=== PATIENT | male | born 1985 | race Caucasian/White ===

== ENCOUNTER 2018-11-25 17:35 | Inpatient (IN) | payer OTHER ==
[2018-11-25] MEDS ORDERED: MELATONIN 5 MG TABLETS PO PRN (22:00)
[2018-11-25 22:21] VITALS: BMI 27.5
--- NOTE | 2018-11-25 22:49 | HP ---
COWS - Scale Resting Pulse: 0= NV 80 or Below Sweatin= No chills or Flushing Restless Observation: 0= Sits Still Pupil Size: 0= Normal to Room Light Bone or Joint Aches: 0= None Runny Nose/ Eye Tearin= None GI Upset > 30mins: 0= None Tremor Observation: 0= None Yawning Observation: 0= None Anxiety or Irritability: 0= None Goose Flesh Skin: 0=Smooth Skin COWS Score: 0 CIWA Score - Admission Criteria [facility]ASAS Guidelines: Admission for Medically Managed Detox: Requires at least one of the followin. CIWA greater than 12 2. Seizures within the past 24 hours 3. Delirium tremens within the past 24 hours 4. Hallucinations within the past 24 hours 5. Acute intervention needed for co occurring medical disorder 6. Acute intervention needed for co occurring psychiatric disorder 7. Severe withdrawal that cannot be handled at a lower level of care (continued vomiting, continued diarrhea, abnormal vital signs) requiring intravenous medication and/or fluids 8. Admission ROS [facility] Chief Complaint: seeking rehab services for intermittent opiate use Allergies/Adverse Reactions: Allergies Allergy/AdvReac Type Severity Reaction Status Date / Time No Known Allergies Allergy Verified 11/25/18 22:09 History of Present Illness: 33 y.o. male with opioid dependence here for rehab. this is client first admission here. He reports this as his first time seeking substance abuse txment. client reports using heroin 2x week and he also abuses oxy's. Reports last use 3 weeks ago and last used herion 1 day ago. client presnetly denies any withdrawal sx's. States he can go weeks w/o using any opiates and not have withdraWAL SX'S. reports he refrains from opiates few months at a time without withdrawal sx's. Denies si/hi/avh/drug overdose or seizure d/o. domiciled, unemployed, denies legals. Exam Limitations: No Limitations - Ebola screening Have you traveled outside of the country in the last 21 days: No (N) Have you had contact with anyone from an Ebola affected area: No Have you been sick,other than usual withdrawal symptoms: No Do you have a fever: No - Review of Systems Constitutional: No Symptoms Reported EENT: reports: No Symptoms Reported Respiratory: reports: No Symptoms reported Cardiac: reports: No Symptoms Reported GI: reports: No Symptoms Reported : reports: No Symptoms Reported Integumentary: reports: No Symptoms Reported Neuro: reports: No Symptoms reported Endocrine: reports: No Symptoms Reported Hematology: reports: No Symptoms Reported Psychiatric: reports: Orientated x3, Depressed (hx/o on zoloft) Other Systems: Reviewed and Negative Patient History - Patient Medical History Hx Anemia: No Hx Asthma: No Hx Chronic Obstructive Pulmonary Disease (COPD): No Hx Cancer: No Hx Cardiac Disorders: No Hx Congestive Heart Failure: No Hx Hypertension: No Hx Hypercholesterolemia: No Hx Pacemaker: No HX Cerebrovascular Accident: No Hx Seizures: No Hx Dementia: No Hx Diabetes: No Hx Gastrointestinal Disorders: No Hx Liver Disease: No Hx Genitourinary Disorders: No Hx Sexually Transmitted Disorders: No Hx Renal Disease (ESRD): No Hx Thyroid Disease: No Hx Human Immunodeficiency Virus (HIV): No Hx Hepatitis C: No Hx Depression: No Hx Suicide Attempt: No Hx Bipolar Disorder: No Hx Schizophrenia: No Other Medical History: heb b- no txment - Patient Surgical History Past Surgical History: No - PPD History Previous Implant?: Yes Documented Results: Negative w/o proof Implanted On Prior [facility] Admission?: No PPD to be Administered?: No - Smoking Cessation Smoking history: Current some day smoker Have you smoked in the past 12 months: Yes Aproximately how many cigarettes per day: 5 Cigars Per Day: 0 Hx Chewing Tobacco Use: No Initiated information on smoking cessation: Yes 'Breaking Loose' booklet given: 11/25/18 - Substance & Tx. History Hx Alcohol Use: No Hx Substance Use: Yes Substance Use Type: Heroin, Opiates (oxy) Hx Substance Use Treatment: No - Substances abused Heroin Substance route: Inhalation Frequency: 1-2 times per week (2x a week) Amount used: 2 bags Age of first use: 32 Date of last use: 11/24/18 Oxycontin Substance route: Inhalation Frequency: 1-2 times per week Amount used: 1 30mg pill Age of first use: 30 Date of last use: 10/27/18 Marijuana/Hashish Substance route: Smoking Frequency: 1-2 times per week Amount used: 1 joint Age of first use: 18 Date of last use: 11/23/18 Family Disease History - Family Disease History Family Disease History: Other: Father (recovering heroin addict) Admission Physical Exam [facility] - Vital Signs Vital Signs: Vital Signs - 24 hr 11/25/18 22:15 Temperature 97.3 F L Pulse Rate 61 Respiratory 16 Rate Blood Pressure 116/78 - Physical General Appearance: Yes: No Apparent Distress HEENTM: Yes: EOMI, Normocephalic, Normal Voice, HÉCTOR, Pharynx Normal Respiratory: Yes: Chest Non-Tender, Lungs Clear, Normal Breath Sounds, No Respiratory Distress, No Accessory Muscle Use Neck: Yes: No masses,lesions,Nodules, Supple, Trachea in good position Breast: Yes: Breast Exam Deferred Cardiology: Yes: Regular Rhythm, Regular Rate, S1, S2 Abdominal: Yes: Normal Bowel Sounds, Non Tender, Soft Genitourinary: Yes: Within Normal Limits Back: Yes: Normal Inspection Musculoskeletal: Yes: full range of Motion, Gait Steady Extremities: Yes: Normal Range of Motion Neurological: Yes: Fully Oriented, Alert, Motor Strength 5/5 Integumentary: Yes: Dry, Warm Lymphatic: Yes: Within Normal Limits - Diagnostic (1) Uncomplicated opioid abuse Current Visit: Yes Status: Acute (2) Cannabis abuse, uncomplicated Current Visit: Yes Status: Acute (3) Nicotine dependence Current Visit: Yes Status: Acute Qualifiers: Nicotine product type: cigarettes Substance use status: uncomplicated Qualified Code(s): F17.210 - Nicotine dependence, cigarettes, uncomplicated (4) Depression Current Visit: Yes Status: Chronic Cleared for Admission [facility] - Detox or Rehab Detox Regimen/Protocol: Not Applicable Claeared for Rehab Admission: Yes Inpatient Rehab Admission - Rehab Decision to Admit Inpatient rehab admission?: Yes - Initial Determination Are CD services needed?: Yes Free of communicable disease: Yes Not in need of hospitalization: Yes - Rehab Admission Criteria Previous failed treatment: No Poor recovery environment: Yes Comorbidities: Yes Lacks judgement: Yes Patient is meeting Inpatient Rehab admission criteria:: Yes
[2018-11-25] MEDS ORDERED: LOPERAMIDE HCL 2 MG CAPSULE PO PRN (22:56)
[2018-11-25] MEDS ORDERED: MAG HYDROX/AL HYDROX/SIMETH 30 ML UNIT-DOSE CUP PO PRN (22:56)
[2018-11-25] MEDS ORDERED: IBUPROFEN 400 MG TABLET (FP) PO PRN (22:56)
[2018-11-25] MEDS ORDERED: MAGNESIUM HYDROX 2400MG/30ML ORAL SUSPENSION 30 ML CUP PO PRN (22:56)
[2018-11-25] MEDS ORDERED: ACETAMINOPHEN 325 MG TABLET (FP) PO PRN (22:56)
[2018-11-25] MEDS ORDERED: NICOTINE POLACRILEX 2 MG GUM BC PRN (22:56)
[2018-11-25] MEDS ORDERED: MENTHOL/PHENOL 1 EACH UD MM PRN (22:56)
[2018-11-25] MEDS ORDERED: hydrOXYzine PAMOATE 50 MG CAPSULE (FP) PO PRN (22:56)
[2018-11-25] MEDS ORDERED: guaiFENesin 200 MG/10 ML 10 ML UNIT-DOSE CUPS PO PRN (22:56)
[2018-11-25] MEDS ORDERED: MAGNESIUM CITRATE 300 ML BOTTLE PO PRN (22:56)
[2018-11-25] MEDS ORDERED: P-EPHED 60MG/TRIPROLIDI 2.5MG TABLET PO PRN (22:56)
[2018-11-26] MEDS ORDERED: INSULIN (NOVOLOG) ASPART 100 UNITS/ML 10ML VIAL ONE (06:21)
--- NOTE | 2018-11-26 08:26 | EKG ---
Test Reason : Blood Pressure : / mmHG Vent. Rate : 063 BPM Atrial Rate : 063 BPM P-R Int : 154 ms QRS Dur : 094 ms QT Int : 426 ms P-R-T Axes : 064 084 062 degrees QTc Int : 435 ms NORMAL SINUS RHYTHM NORMAL ECG NO PREVIOUS ECGS AVAILABLE Confirmed by CALVIN TALAVERA, SAMMIE ([id number]) on 11/26/2018 8:25:38 AM Referred By: Confirmed By:SAMMIE SIMPSON MD
[2018-11-26] MEDS ORDERED: TUBERCULIN PPD 5 TU/0.1ML VIAL ID ONE (10:51)
[2018-11-26] MEDS: PRENATAL VITAMINS W/ FOLIC ACID TABLET (FP) PO SCH (10:57)
[2018-11-26 12:33] LABS: HEMATOCRIT 43.9 % (35.4-49); MCH 31.5 pg (25.7-33.7); MCHC 34.1 g/dl (32.0-35.9); MEAN CELL VOLUME 92.2 fl (80-96); PLATELET COUNT 172 K/MM3 (134-434); RBC 4.77 M/mm3 (4.00-5.60); RDW 12.4 % (11.9-15.9)
[2018-11-26 12:49] LABS: ALBUMIN 3.6 g/dl (3.4-5.0); ALK PHOS 63 U/L (45-117); ANION GAP 5 MMOL/L (8-16); BILIRUBIN,TOTAL 0.3 mg/dL (0.2-1); BLOOD UREA NITROGEN 21 mg/dL (7-18); CALCIUM 8.9 mg/dL (8.5-10.1); CHLORIDE 108 mmol/L (98-107); CO2 29 mmol/L (21-32); CREATININE 0.9 mg/dL (0.55-1.3); GLUCOSE,RANDOM 92 mg/dL (74-106); POTASSIUM 4.2 mmol/L (3.5-5.1); SGOT/AST 12 U/L (15-37); SGPT/ALT 22 U/L (13-61); SODIUM 141 mmol/L (136-145); TOT PROT 6.4 g/dl (6.4-8.2)
--- NOTE | 2018-11-26 14:37 | CONSULT ---
[facility] Psychiatric Consult - Data Date of interview: 11/26/18 Admission source: [facility] in [place] Identifying data: Mr Mendoza is a 33 years old single , unemployed with no source of income, living with family seeking opioid and cannabis Substance Abuse History: Reports history of heroin, oxycontin and marijuana use. Refer to addiction counselor's summary for further information Medical History: Significant for Hepatitis B. Smokes 5 cigaretees daily Psychiatric History: Reports being prescribed Zoloft 50 mg po daily for depresion by his family physician at [facility] in [facility] a month ago. 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 Claims that he does not feel like that medication is helping him. Denies previous psychiatric hospitalization or suicodal attempt. At present, denies experiencing depressive symptoms, S/H ideations. He does not want to continue taking the medication Physical/Sexual Abuse/Trauma History: Denies history of emotional, physical or sexual abuse as well as DV relationship Additional Comment: Reports history of one previous felony conviction on charges of robbery 2nd degree. Reports serving 6 months and 5 years probation Mental Status Exam - Mental Status Exam Alert and Oriented to: Time, Place, Person Cognitive Function: Fair Mood: Hopeful, Euthymic Patient Behavior: Cooperative Speech Pattern: Clear Voice Loudness: Normal Thought Process: Intact, Goal Oriented Hallucinations: Denies Suicidal Ideation: Denies Homicidal Ideation: Denies Insight/Judgement: Poor Sleep: Well Appetite: Good Muscle strength/Tone: Normal Gait/Station: Normal Psychiatric Findings - Problem List ([place] 1, 2,3) (1) Depressive disorder Current Visit: Yes Status: Chronic (2) Substance induced mood disorder Current Visit: Yes Status: Ruled-out (3) Opioid abuse Current Visit: Yes Status: Acute (4) Cannabis abuse Current Visit: Yes Status: Acute (5) Nicotine dependence Current Visit: Yes Status: Chronic Qualifiers: Nicotine product type: cigarettes Substance use status: uncomplicated Qualified Code(s): F17.210 - Nicotine dependence, cigarettes, uncomplicated (6) Hepatitis B Current Visit: Yes Status: Chronic - Initial Treatment Plan Initial Treatment Plan: Continue inpatient rehabilitation
[2018-11-26 15:59] LABS: URINE APPEARANCE TURBID; URINE BILIRUBIN NEGATIVE (NEGATIVE); URINE COLOR YELLOW; URINE GLUCOSE (UA) NEGATIVE (NEGATIVE); URINE KETONE NEGATIVE (NEGATIVE); URINE LEUK ESTERASE NEGATIVE (NEGATIVE); URINE NITRITE NEGATIVE (NEGATIVE); URINE PROTEIN NEGATIVE (NEGATIVE)
[2018-11-26] MEDS: THIAMINE HCL 100 MG TABLET (FP) PO SCH (21:44)
[2018-11-27 07:05] VITALS: BP 115/78; PULSE 65; TEMP 97.8
[2018-11-27] MEDS: PRENATAL VITAMINS W/ FOLIC ACID TABLET (FP) PO SCH (10:36)
[2018-11-27] MEDS: THIAMINE HCL 100 MG TABLET (FP) PO SCH (21:33)
--- NOTE | 2018-11-28 09:17 | PN ---
[facility] Progress Note Note: Patient requested to sign out AMA. Patient states he will continue with NA meetings for aftercare but does not want to continue with inpatient rehab. Patient encouraged to continue with rehab and explained risk factors of relapse and potential overdose with signing out ama but patient refused to stay in treatment. Patient to follow up with NA for aftercare and PCP to continue medical management. Ambulatory Orders Sertraline HCl [Zoloft -] 50 mg PO DAILY 11/25/18 Laboratory Tests 11/25/18 11/26/18 11/26/18 10:00 08:40 08:40 WBC 7.0 RBC 4.77 Hgb 15.0 Hct 43.9 MCV 92.2 MCH 31.5 MCHC 34.1 RDW 12.4 Plt Count 172 MPV 9.0 Sodium 141 Potassium 4.2 Chloride 108 H Carbon Dioxide 29 Anion Gap 5 L BUN 21 H Creatinine 0.9 Creat Clearance w eGFR 98.42 Random Glucose 92 Calcium 8.9 Total Bilirubin 0.3 AST 12 L ALT 22 Alkaline Phosphatase 63 Total Protein 6.4 Albumin 3.6 Urine Color Yellow Urine Appearance Turbid Urine pH 6.0 Ur Specific [place] 1.038 H Urine Protein Negative Urine Glucose (UA) Negative Urine Ketones Negative Urine Blood Negative Urine Nitrite Negative Urine Bilirubin Negative Urine Urobilinogen 1.0 Ur Leukocyte Esterase Negative RPR Titer 11/26/18 08:40 WBC RBC Hgb Hct MCV MCH MCHC RDW Plt Count MPV Sodium Potassium Chloride Carbon Dioxide Anion Gap BUN Creatinine Creat Clearance w eGFR Random Glucose Calcium Total Bilirubin AST ALT Alkaline Phosphatase Total Protein Albumin Urine Color Urine Appearance Urine pH Ur Specific [place] Urine Protein Urine Glucose (UA) Urine Ketones Urine Blood Urine Nitrite Urine Bilirubin Urine Urobilinogen Ur Leukocyte Esterase RPR Titer Nonreactive Vital Signs Temperature 97.8 F 11/27/18 07:04 Pulse Rate 65 11/27/18 07:04 Respiratory Rate 18 11/28/18 06:59 Blood Pressure 115/78 11/27/18 07:04 O2 Sat by Pulse Oximetry (%)
[2018-11-28] MEDS: PRENATAL VITAMINS W/ FOLIC ACID TABLET (FP) PO SCH (10:44)
== END 2018-11-28 10:50 | disposition left against medical advice (07) | DRG 770 ==
LOC: YASAS 17:35 → Y3W 22:49
PROVIDERS: ADMIT Neuromusculoskeletal Medicine & OMM; ATTEND Neuromusculoskeletal Medicine & OMM
PROC: HZ42ZZZ Group Counseling for Substance Abuse Treatment, Cognitive-Behavioral (ICD-10-PCS; principal; 2018-11-25)
DX: F11.10 Opioid abuse, uncomplicated (principal); F12.10 Cannabis abuse, uncomplicated; F17.210 Nicotine dependence, cigarettes, uncomplicated; F32.9 Major depressive disorder, single episode, unspecified; F19.24 Other psychoactive substance dependence with psychoactive substance-induced mood disorder; B18.1 Chronic viral hepatitis B without delta-agent
CPT/HCPCS: 36415; 80053; 81003; 85027; 86593; 93005; 93010